=== PATIENT | female | born 1960 | race African-American/Black ===

== ENCOUNTER 2017-11-28 02:31 | Emergency (ER) | payer OTHER ==
[~2017-11-28] VITALS: Ht 157.5 cm; Wt 97.0 kg
[2017-11-28] MEDS ORDERED: IPRATROPIUM BROMIDE (0.02%) 0.5MG/2.5ML NEB HHN STA (03:05)
[2017-11-28] MEDS ORDERED: PREDNISONE 20MG TABLET PO STA (03:05)
[2017-11-28] MEDS ORDERED: ALBUTEROL (0.083%) 2.5MG/3ML NEB HHN STA (03:05)
[2017-11-28 05:21] VITALS: BP 118/60
== END 2017-11-28 05:23 | disposition home or self-care (01) ==
LOC: ER 02:31
DX: J45.901 Unspecified asthma with (acute) exacerbation (principal)
CPT/HCPCS: 94640; 99283; J7512; J7611